=== PATIENT | female | born 1960 | race Asian ===

== ENCOUNTER 2016-10-21 07:56 | Day surgery (SDC) | payer OTHER ==
[2016-10-20 12:28] VITALS: BMI 21.4
[2016-10-21] MEDS ORDERED: PROPOFOL 20 ML ONE ×2 (08:42)
[2016-10-21 09:42] VITALS: TEMP 97.6
[2016-10-21 10:28] VITALS: BP 125/71; PULSE 73
--- NOTE | 2016-10-22 13:23 | PATH ---
Surgical Pathology Report Patient Name: SANDI KHOURY [facility]. Rec. #: [id number] /Age/Gender: 1960 (Age: 55) / F Account: [id number] Location: [facility]-ENDOSCOPY Taken: 10/21/2016 Received: 10/21/2016 Reported: 10/22/2016 Physicians: Lavonne Good M.D. Specimen(s) Received A: BX 2ND PORTION OF DUODENUM BULB B: BX POLYP GASTRIC CARDIA C: BX BODY / ANTRUM D: BX DISTAL ESOPHAGUS Clinical History Abdominal pain, history of intestinal metaplasia Antral gastritis, polyp gastric fundus, hemorrhoids Final Diagnosis A. DUODENUM, SECOND PORTION AND BULB, BIOPSY: DUODENAL MUCOSA WITH MILD CHRONIC INFLAMMATION FOCAL FERNY'S GLANDS HYPERPLASIA. NO HISTOLOGIC EVIDENCE OF GLUTEN SENSITIVE ENTEROPATHY (CELIAC DISEASE). B. STOMACH, CARDIA, POLYP, BIOPSY: GASTRIC OXYNTIC MUCOSA FUNDIC GLAND POLYP AND MILD CHRONIC GASTRITIS. IMMUNOSTAIN FOR H. PYLORI IS NEGATIVE FOR ORGANISMS. C. STOMACH, BODY/ANTRUM, BIOPSY: GASTRIC ANTRAL AND OXYNTIC MUCOSA WITH MILD TO MODERATE CHRONIC GASTRITIS. IMMUNOSTAIN FOR H. PYLORI IS NEGATIVE FOR ORGANISMS. D. ESOPHAGUS, DISTAL AND MID, BIOPSY: SQUAMOUS MUCOSA WITH CHRONIC INFLAMMATION AND REFLUX TYPE CHANGES. NO COLUMNAR EPITHELIUM PRESENT (NOT DAVID'S ESOPHAGUS) IDENTIFIED. NO EVIDENCE OF EOSINOPHILIC ESOPHAGITIS. Electronically Signed Xavier Mackey M.D. Gross Description A. Received in formalin, labeled "biopsy second portion of duodenum/bulb" are 3 fragments of fonseca-pink tissue and measuring 0.3-0.4 cm in greatest dimension. The specimen is submitted in toto in one cassette. B. Received in formalin, labeled "biopsy polyp gastric cardia" are 2 fragments of fonseca-pink tissue measuring 0.3 cm in greatest dimension. The specimen is submitted in toto in one cassette. C. Received in formalin, labeled "body/antrum" are 6 fragments of fonseca-pink tissue measuring 0.3 cm in greatest dimension each. The specimen is submitted in toto in one cassette. D. Received in formalin, labeled "distal/mid esophagus" are 2 fragments of fonseca-pink tissue measuring 0.3 and 0.4 cm in greatest dimension. The specimen is submitted in toto in one cassette. AF/10/21/2016 final/10/21/2016
== END 2016-10-21 10:28 | disposition home or self-care (01) ==
LOC: JASU-ENDO 07:56
PROVIDERS: ATTEND Internal Medicine Gastroenterology
PROC: 0DB68ZX Excision of Stomach, Via Natural or Artificial Opening Endoscopic, Diagnostic (ICD-10-PCS; 2016-10-21)
PROC: 0DB58ZX Excision of Esophagus, Via Natural or Artificial Opening Endoscopic, Diagnostic (ICD-10-PCS; 2016-10-21)
PROC: 0DJD8ZZ Inspection of Lower Intestinal Tract, Via Natural or Artificial Opening Endoscopic (ICD-10-PCS; 2016-10-21)
PROC: 0DB98ZX Excision of Duodenum, Via Natural or Artificial Opening Endoscopic, Diagnostic (ICD-10-PCS; principal; 2016-10-21 09:00)
DX: Z12.11 Encounter for screening for malignant neoplasm of colon (principal); K64.8 Other hemorrhoids; K63.89 Other specified diseases of intestine; K31.7 Polyp of stomach and duodenum; K29.50 Unspecified chronic gastritis without bleeding; K29.80 Duodenitis without bleeding
CPT/HCPCS: 43239; G0121; 88305-TC; 88342-TC

== ENCOUNTER 2017-12-01 09:10 | Emergency (ER) | payer OTHER ==
[2017-12-01 09:20] VITALS: BP 117/76; PULSE 91; TEMP 97; BMI 20.5
[2017-12-01] MEDS ORDERED: DIPHTH,PERTUSS(ACELL),TET 0.5 ML DISP.SYRIN IM ONE (09:50)
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
[2017-12-01] MEDS ORDERED: ACETAMINOPHEN 325 MG TABLET (FP) PO ONE (10:01)
[2017-12-01] MEDS ORDERED: ACETAMINOPHEN 325 MG TABLET (FP) ONE (10:02)
[2017-12-01] MEDS ORDERED: ALPRAZolam 0.25 MG TABLET PO ONE (10:30)
[2017-12-01] MEDS ORDERED: ALPRAZolam 0.25 MG TABLET ONE (10:35)
== END 2017-12-01 10:55 | disposition home or self-care (01) ==
LOC: JERFT 09:10 → JER 09:10 → JERFT 10:55
PROC: 3E0234Z Introduction of Serum, Toxoid and Vaccine into Muscle, Percutaneous Approach (ICD-10-PCS; principal; 2017-12-01)
DX: S00.12XA Contusion of left eyelid and periocular area, initial encounter (principal); S05.12XA Contusion of eyeball and orbital tissues, left eye, initial encounter; S00.212A Abrasion of left eyelid and periocular area, initial encounter; Y04.2XXA Assault by strike against or bumped into by another person, initial encounter; Y93.F9 Activity, other caregiving; Y92.230 Patient room in hospital as the place of occurrence of the external cause; Y99.0 Civilian activity done for income or pay
CPT/HCPCS: 99281-25

== ENCOUNTER 2019-09-30 18:28 | Emergency (ER) | payer OTHER ==
[2019-09-30] MEDS ORDERED: KETOROLAC TROMETHAMINE 60 MG/2 ML VIAL IM ONE (18:32)
--- NOTE | 2019-09-30 18:32 | PDOC ---
Rapid Medical Evaluation Chief Complaint: Injury Time Seen by Provider: 09/30/19 18:30 Medical Evaluation: Allergies Allergy/AdvReac Type Severity Reaction Status Date / Time No Known Allergies Allergy Verified 12/01/17 09:18 09/30/19 18:31 I have performed a brief in-person evaluation of this patient. The patient presents with a chief complaint of: lower back pain s/p heavy lifting at work 3 hrs ago. 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 report increased pain with bending. Denies radiculopathy Pertinent physical exam findings:. TTP to lumbar spine in mild distress I have ordered the following: Toradol The patient will proceed to the ED for further evaluation. Discharge Disposition - Diagnosis Low back strain Qualifiers: Encounter type: initial encounter Qualified Code(s): S39.012A - Strain of muscle, fascia and tendon of lower back, initial encounter - Discharge Dispostion Condition at time of disposition: Stable - Referrals - Patient Instructions - Post Discharge Activity
[2019-09-30 18:35] VITALS: BP 140/107; PULSE 86; TEMP 97.9; BMI 23.0
[2019-09-30] MEDS ORDERED: KETOROLAC TROMETHAMINE 60 MG/2 ML VIAL ONE (18:37)
[2019-09-30] MEDS ORDERED: LIDOCAINE 5% TOPICAL PATCH TP ONE (19:11)
[2019-09-30] MEDS ORDERED: LIDOCAINE 5% TOPICAL PATCH ONE (19:12)
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
== END 2019-09-30 19:44 | disposition home or self-care (01) ==
LOC: JERFT 18:28 → JER 18:28 → JERFT 19:44
PROC: 3E023GC Introduction of Other Therapeutic Substance into Muscle, Percutaneous Approach (ICD-10-PCS; principal; 2019-09-30)
DX: S39.012A Strain of muscle, fascia and tendon of lower back, initial encounter (principal); X50.0XXA Overexertion from strenuous movement or load, initial encounter
CPT/HCPCS: 99284-25

== ENCOUNTER 2021-03-29 18:04 | Emergency (ER) | payer BC, OTHER ==
[2021-03-29 18:11] VITALS: BP 100/60; PULSE 72; TEMP 98; BMI 20.7
== END 2021-03-29 19:48 | disposition home or self-care (01) ==
LOC: JER 18:04
DX: U07.1 COVID-19 (principal)
CPT/HCPCS: 99283-25; C9803; U0003; U0005

== ENCOUNTER 2021-04-02 13:56 | Emergency (ER) | payer BC ==
[2021-04-02 14:06] VITALS: TEMP 98.6; BMI 20.7
[2021-04-02] MEDS ORDERED: SOTROVIMAB 500 MG in SODIUM CHLORIDE 100 ML IVPB ONE (15:54)
[2021-04-02] MEDS ORDERED: KETOROLAC TROMETHAMINE 30 MG/1 ML VIAL IVPUSH ONE (16:25)
[2021-04-02] MEDS ORDERED: KETOROLAC TROMETHAMINE 30 MG/1 ML VIAL ONE (16:53)
[2021-04-02 18:32] VITALS: BP 122/76; PULSE 66
== END 2021-04-02 18:32 | disposition home or self-care (01) ==
LOC: JCOVINFU 13:56
DX: U07.1 COVID-19 (principal)
CPT/HCPCS: 96374; 99284-25; M0247; Q0247